=== PATIENT | female | born 1985 | race Caucasian/White ===

== ENCOUNTER 2021-01-08 15:07 | Outpatient (CLI) | payer BC, SELFPAY ==
--- NOTE | ~2021-01-08 | US_ITS ---
EXAMINATION: US OB <=14 wk fetus w TV EXAM DATE: 01/08/2021 15:38 INDICATION: N91.2 - Amenorrhea, unspecified 8? Weeks dating. 1st trimester. TECHNIQUE: Pelvic transabdominal and transvaginal sonogram was performed. There are multiple graysca le and Doppler images available for interpretation. There is no prior study for comparison. FINDINGS: Uterus measures 8.4 x 5.3 x 6.1 cm. There is intrauterine gestation sac. There is a pole measuring 6 mm crown-rump length, corresponding to estimated gestational age 6 weeks 2 days. The re is a yolk sac. Could not confirm heart tones at this time. There is a small subchorionic hem orrhage. Both ovaries are morphologically normal. IMPRESSION: 1. Early intrauterine gestation age by ultrasound 6 weeks 2 days. Could not confirm heart tones at this time. Indeterminate viability. Recommend one week follow-up. 2. Small subchorionic hemorrhage. I discussed this case with Ilene Kapadia MD at 01/08/2021 15:50 CDT. Reviewed, dictated and finalized at location A. IMPRESSION: 1. Early intrauterine gestation age by ultrasound 6 weeks 2 days. Could not con firm heart tones at this time. Indeterminate viability. Recommend one wee k follow-up. 2. Small subchorionic hemorrhage. I discussed this case with Ilene Kapadia MD at 01/08/2021 15:50 CDT.
== END 2021-01-08 15:08 | disposition home or self-care (01) ==
PROVIDERS: PCP Nurse Practitioner Family; Visit Provider Obstetrics & Gynecology
DX: O20.8 Other hemorrhage in early pregnancy (principal); Z3A.01 Less than 8 weeks gestation of pregnancy
CPT/HCPCS: 76801; 76817

== ENCOUNTER 2021-01-19 15:11 | Outpatient (CLI) | payer BC, SELFPAY ==
--- NOTE | ~2021-01-19 | US_ITS ---
EXAMINATION: US OB <=14 wk fetus w TV EXAM DATE: 01/19/2021 15:51 INDICATION: O20.0 - Threatened . No heart tones last week 1st trimester. TECHNIQUE: Pelvic obstetrical transabdominal sonogram was performed by a technologist. There are mu ltiple grayscale and Doppler images available for interpretation. Comparison is made to prior examina tion from 01/08/2021. FINDINGS: There is intrauterine gestation sac identified with yolk sac and pole crown-rump naman th of 5 mm corresponding to estimated gestational age 6 weeks 1 day, unchanged compared to prior stud y. Again, no heart tones identified. This is consistent with demise, missed . The re is small subchorionic hematoma unchanged. The ovaries are morphologically normal. IMPRESSION: Missed . Small subchorionic hematoma. Reviewed, dictated and finalized at location B.
== END 2021-01-19 15:12 | disposition home or self-care (01) ==
PROVIDERS: PCP Nurse Practitioner Family; Visit Provider Obstetrics & Gynecology
DX: O20.0 Threatened abortion (principal); O20.8 Other hemorrhage in early pregnancy; Z3A.01 Less than 8 weeks gestation of pregnancy
CPT/HCPCS: 76801; 76817

== ENCOUNTER → 2021-09-03 08:25 | Outpatient (CLI) | payer OTHER, SELFPAY ==
--- NOTE | ~2021-09-03 | US_ITS ---
EXAMINATION: US OB <= 14 weeks fetus DATE: 09/03/2021 08:50 INDICATION: with inconclusive viability. TECHNIQUE: Real-time transabdominal pelvic ultrasound was performed. COMPARISON: Ultrasound 01/19/2021, 01/08/2021 FINDINGS: The uterus measures 10.1 x 7.2 x 9.8 cm. There is an intrauterine gestational sac. The crown ru mp length measures 6.1 cm, which correlates with an estimated gestational age of 12 weeks and 4 day(s ) (+/-) 1 week(s) and 1 day(s). heart motion is identified measuring 158 beats per minute (bpm) by M-mode Doppler. The ovaries are not visualized. There is no free fluid in the pelvis. IMPRESSION: 1. Single living intrauterine gestation with estimated date of delivery of 03/14/2022. Reviewed, dictated and finalized at location B. [employer] IMPRESSION: 1. Single living intrauterine gestation with estimated date of delivery of 02/19.
== END ==
PROVIDERS: Visit Provider Obstetrics & Gynecology
DX: Z34.91 Encounter for supervision of normal pregnancy, unspecified, first trimester (principal); Z3A.12 12 weeks gestation of pregnancy
CPT/HCPCS: 76801

== ENCOUNTER → 2021-10-22 15:49 | Outpatient (CLI) | payer OTHER, SELFPAY ==
--- NOTE | ~2021-10-22 | US_ITS ---
EXAMINATION: US OB /maternal detail DATE: 10/22/2021 16:39 INDICATION: anatomic survey. TECHNIQUE: Real-time ultrasound of the pelvis was performed. COMPARISON: Ultrasound 09/03/2021 FINDINGS: There is a single living fetus in vertex presentation. The placenta is posterior, 4.1 cm from the ce rvix. heart rate is 147 beats per minute (bpm). The amniotic fluid volume is subjectively rc l. The following biometric data were obtained: Biparietal diameter (BPD): 4.7 cm; head circumference (HC): 17.2 cm; abdominal circumference (AC): 14 .4 cm; femur length (FL): 3.0 cm. These measurements are concordant. Estimated weight is 296 g +/- 44 g, which correlates with the 41st percentile when 03/14/22 is u sed as estimated date of delivery. As single measurements, these parameters are each equal to the following estimated gestational ages w ith ranges of +/- 2 standard deviations: BPD: 20 weeks 1 days (18 weeks 3 days - 21 weeks 6 days). HC: 19 weeks 5 days (18 weeks 2 days - 21 weeks 1 days). AC: 19 weeks 5 days (17 weeks 5 days - 21 weeks 5 days). FL: 19 weeks 1 days (17 weeks 2 days - 21 weeks 0 days). estimated gestational age based solely on measurements from this exam is 19 weeks 5 days +/- 1 weeks 3 days. The cerebral ventricles, cerebellum, cisterna magna, nuchal fold, and visualized portions of the spin e are normal. The lip is not well evaluated. The heart is normal. The diaphragm, stomach, kidneys, an d bladder are normal. There are two umbilical arteries to yield a 3-vessel cord. The cord insertion i s normal. IMPRESSION: 1. Single living fetus in vertex presentation. 2. Estimated weight is 296 g +/- 44 g, which correlates with the 41st percentile when 03/14/22 is used as estimated date of delivery. This date was set by ultrasound on 09/03/2021. 3. Normal anatomic survey. Reviewed, dictated and finalized at location A. [employer]ACH IMPRESSION: 1. Single living fetus in vertex presentation. 2. Estimated weight is 296 g +/- 44 g, which correlates with the 41st pe rcentile when 03/14/22 is used as estimated date of delivery. This date was set by ultrasound on 09/03/2021. 3. Normal anatomic survey.
== END ==
PROVIDERS: Visit Provider Obstetrics & Gynecology
DX: Z36.3 Encounter for antenatal screening for malformations (principal)
CPT/HCPCS: 76805

== ENCOUNTER 2021-12-30 18:08 | Observation (INO) | payer OTHER, SELFPAY ==
--- NOTE | 2021-12-30 18:10 | OBADM ---
This patient, Jamee Hernandez, admitted to the OB room Labor/Delivery/Recovery 105 for observation. Patient/family oriented to hospital policies and general routines including ID bracelet, bed and alarms, visiting hours, pain management, procedures, bathroom and other care routines, personal items, smoking policy, room service/diet, and visiting hours. Patient/Family are encouraged to report perceived risks to care and to ask questions if they do not understand what they are told or what they should do.
[2021-12-30 18:30] VITALS: BP 107/68; PULSE 82
--- NOTE | 2022-01-24 12:14 | PM.IMHP ---
H&P: HPI History of Present Illness Date/Time: 01/24/22 12:14 Chief Complaint: Patient had called the exchange with complaints of persistent bleeding at external vagina which had occurred immediately after getting a wax of the labia. She had been applying pressure to area for over an hour and continued to have bleeding from it. She denies bleeding from vagina. She denied cramping. She was informed to come to labor and delivery for evaluation. On toco no contractions, heart tracing reassuring. Review of Systems Review of Systems: All systems reviewed & are unremarkable except as noted in HPI and below Constitutional: Constitutional: Reports no additional constitutional complaints ENT: Reports system reviewed and no additional complaints, except as documented Genitourinary: Genitourinary: Reports no additional female genitourinary complaints Neurologic: Denies confusion Psychiatric: Psychiatric: Denies confusion Hematologic/Lymphatic: Hematologic/Lymphatic: Reports no additional hematologic/lymphatic complaints Allergic/Immunologic: Allergic/Immunologic: Reports no additional allergic/immunologic complaints PMFSH Past Medical History Medical History Anxiety Asthma History of torn meniscus of knee Migraines Missed x1 Seasonal allergies Surgical History Surgical History [place] teeth removed Family History Family History Father Depression Anxiety Heart disease Grandparent Alcoholism Diabetes mellitus Social History Social History Smoking status: Never smoker Alcohol intake: former Alcohol use details: Socially Substance use: never Meds Home Medications and Allergies Home Medications Medication Instructions Recorded Confirmed Type vit#24-iron amino acid 1 tablet PO DAILY 12/30/21 12/30/21 History chelat-folic acid 30 mg-975 mcg tablet Allergies Allergy/AdvReac Type Severity Reaction Status Date / Time No Known Allergies Allergy Verified 01/04/22 08:43 Exam Const: General: comfortable and no acute distress Eyes: General: appearance normal, both eyes and all related structures Resp: Effort & Inspection: normal respiratory effort GI: Other: gravid, no fundal tenderness : External Female Exam: other (small area at sup left lab majora inner oozing) Other: silver nitrate applied to area, hemostasis noted. Skin: General skin exam: normal color Neuro: General: oriented to person, oriented to place and oriented to time Assessment and Plan Assessment and plan (1) Vulvar bleeding: Code(s): N90.89 - Other specified noninflammatory disorders of vulva and perineum Status: Acute Assessment and Plan: Hemostasis obtained with silver nitrate. Keep pressure on area with gauze for rest of evening. Do not scrub area. Bleeding precautions discussed. [facility] H&P Billing Inpatient H&P Inpatient H&P: [id number] Initial Admit Low
--- NOTE | 2022-01-28 12:06 | PM.OBTRLD ---
OB - Triage/Final Diagnosis Visit Information Comments/Additional reasons for admission: I have assessed the risk for this patient, Jamee Hernandez, and determined that she would benefit from observation care. Final Diagnosis (1) Antepartum bleeding, second trimester: Code(s): O46.92 - Antepartum hemorrhage, unspecified, second trimester Status: Acute
== END 2021-12-30 18:55 | disposition home or self-care (01) ==
PROVIDERS: Admitting Provider Obstetrics & Gynecology; PCP Nurse Practitioner Family; Visit Provider Obstetrics & Gynecology
DX: O26.893 Other specified pregnancy related conditions, third trimester (principal); N90.89 Other specified noninflammatory disorders of vulva and perineum; Z3A.29 29 weeks gestation of pregnancy
CPT/HCPCS: G0378; G0379

== ENCOUNTER 2024-07-15 09:18 | Emergency (ER) | payer OTHER, SELFPAY ==
[2024-07-15 09:57] VITALS: BP 116/82; PULSE 86; RESP 14; TEMP 36.3; O2SAT 100
--- NOTE | 2024-07-15 10:12 | ED_ITS ---
HPI - URI/Sore Throat General Chief Complaint: Upper Respiratory Infection Stated Complaint: SINUS CONGESTON/PAIN/EARACHE/DRAINAGE/COUGH Time Seen by Provider: 07/15/24 10:12 Source: patient Mode of arrival: ambulatory Limitations: no limitations History of Present Illness HPI Narrative: 39-year-old female presents with complaint of 10 days of nasal congestion, sinus pressure, postnasal drainage. Taking Erin with no relief of symptoms. The past 2-3 days congestion and sinus pressure worse with pain to left ear. Reports left ear pain and pressure intermittently causing dizziness. Afebrile. All systems reviewed and negative except as noted above. Related Data Home Medications Medication Instructions Recorded Confirmed ubrogepant 50 mg tablet (Ubrelvy) 50 mg PO DAILY 07/15/24 07/15/24 Allergies Allergy/AdvReac Type Severity Reaction Status Date / Time No Known Allergies Allergy Verified 07/15/24 10:10 Review of Systems Review of Systems: CONSTITUTIONAL: Denies fever, chills, or sweats. EYES: Denies visual changes, redness, or discharge. ENT: Reports rhinorrhea, congestion, sinus pressure, sore throat, left ear pain CARDIOVASCULAR: Denies chest pain, palpitations, or edema. RESPIRATORY: Reports cough. Denies dyspnea. GASTROINTESTINAL: Denies abdominal pain, nausea, vomiting, or diarrhea. GENITOURINARY: Denies dysuria or hematuria. SKIN: Denies rash or itching. MUSCULOSKELETAL: Denies back pain, joint pain, or myalgia. NEUROLOGIC: Denies headache, numbness, or weakness. PSYCHIATRIC: Denies anxiety or depression. All other systems reviewed are negative, except as documented in HPI. FOR[facility]LY [facility], [facility] Past Medical History Medical History Anxiety Asthma History of torn meniscus of knee Migraines Missed x1 Seasonal allergies Surgical History Surgical History [place] teeth removed Family History Family History Father Depression Anxiety Heart disease Grandparent Alcoholism Diabetes mellitus Social History Social History Smoking status: Never smoker Alcohol intake: former Alcohol use details: Socially Substance use: never Comments At time of signature, agree with nursing past medical, surgical, social and family history. There is no relevant family history pertinent to the presenting complaint. Exam Narrative: GENERAL: This is a well-nourished, well-developed patient, in no apparent distress. HEAD: normocephalic, atraumatic. EYES: PERRL. Sclera clear/white. Vision is grossly intact. EARS: External ears normal, auditory canals clear and without drainage, fluid bilateral TMs without erythema or perforation. Hearing grossly intact. NOSE: External nose normal with moderate congestion, postnasal drainage, erythema and swelling to bilateral nares. THROAT: Mucous membranes moist, erythema with postnasal drainage NECK: Neck supple, non-tender without lymphadenopathy, masses or thyromegaly. CARDIOVASCULAR: Regular rate and rhythm without murmurs, gallops, or rubs. RESPIRATORY: Clear to auscultation. Breath sounds equal bilaterally. No wheezes, rales, or rhonchi. SKIN: warm, Dry, intact with no suspicious lesions or rash, good texture and turgor. NEURO: awake, alert, and oriented to person, place and time. There were no obvious focal neurologic abnormalities. EXTREMITIES: No joint tenderness, effusion, or edema noted. Course Course Level of Care: Express Care Visit Vital Signs Vital signs: Vital Signs Temperature 36.3 C L 07/15/24 09:57 Pulse Rate 86 07/15/24 09:57 Respiratory Rate 14 07/15/24 09:57 Blood Pressure 116/82 07/15/24 09:57 Pulse Oximetry 100 07/15/24 09:57 Oxygen Delivery Room Air 07/15/24 09:57 Temperature 36.3 C L 07/15/24 09:57 Pulse Rate 86 07/15/24 09:57 Respiratory Rate 14 07/15/24 09:57 Blood Pressure 116/82 07/15/24 09:57 Pulse Oximetry 100 07/15/24 09:57 Oxygen Delivery Room Air 07/15/24 09:57 Reviewed MDM - URI/Sore Throat MDM Narrative Medical decision making narrative: Will treat patient for bacterial sinusitis due to duration of symptoms and exam findings. Patient agrees with plan of care. Patient is aware of diagnosis, understands and agrees to treatment plan. Anticipatory guidance given. Patient agrees to follow-up as directed and is aware of reasons to seek care at the emergency department. Portions of this record may have been created with voice recognition software Differential Diagnosis Differential diagnosis: Likely upper respiratory infection, sinusitis, viral infection and influenza Discharge Plan Discharge Clinical Impression: Acute bacterial sinusitis Patient Disposition: Home, Self-Care Condition: Stable Instructions: Sinusitis (ED) Additional Instructions: Take medications as prescribed. Continue taking a daily antihistamine such as Zyrtec or Erin. Drink at least 64 oz of water a day. Follow-up with your doctor if symptoms are not improving. Prescriptions: New amoxicillin 875 mg tablet 875 mg PO Q12H 7 Days Qty: 14 0RF mometasone [Allergy Nasal (mometasone)] 50 mcg/actuation spray,non-aerosol 2 spray intranasal DAILY Qty: 17 0RF Rx Instructions: administer into each nostril methylprednisolone [Medrol (Alvarez)] 4 mg tablets,dose pack See Rx Instructions PO .COMPLEX Qty: 21 0RF Rx Instructions: orally per package directions No Action Ubrelvy 50 mg tablet 50 mg PO DAILY Follow-up/Referrals: PHYSICIAN,NUT GRINDER [Primary Care Provider] - Time of Disposition: 10:25
== END 2024-07-15 10:26 | disposition home or self-care (01) ==
PROVIDERS: Emergency Provider Nurse Practitioner Family
DX: J01.90 Acute sinusitis, unspecified (principal); J45.909 Unspecified asthma, uncomplicated
CPT/HCPCS: 99213; G0463